=== PATIENT | male | born 1990 | race Caucasian/White ===

== ENCOUNTER 2017-05-20 05:39 | Day surgery (SDC) | payer BC ==
[~2017-05-20] VITALS: Ht 180.3 cm; Wt 88.1 kg
[2017-05-20] MEDS ORDERED: LACTATED RINGERS 1,000 ML IV SCH (06:04)
[2017-05-20] MEDS ORDERED: NONE PER PT (06:05)
[2017-05-20 06:09] VITALS: BP 124/74
[2017-05-20] MEDS ORDERED: MIDAZOLAM 1 MG/ML, 2ML ONE (06:14)
[2017-05-20] MEDS ORDERED: FENTANYL PF 250 MCG/5ML ONE (06:14)
[2017-05-20] MEDS ORDERED: GABAPENTIN 300 MG CAPSULE PO ONE (06:30)
[2017-05-20] MEDS ORDERED: LIDOCAINE 1%, 2ML SQ PRN (06:30)
[2017-05-20] MEDS ORDERED: SUCCINYLCHOLINE 20 MG/ML, 10ML ONE (06:59)
[2017-05-20] MEDS ORDERED: ROCURONIUM 10 MG/ML,10ML ONE (06:59)
[2017-05-20] MEDS ORDERED: DEXAMETHASONE 4 MG/ML, 1ML ONE (06:59)
[2017-05-20] MEDS ORDERED: ONDANSETRON 2MG/ML, 2ML ONE (06:59)
[2017-05-20] MEDS ORDERED: PROPOFOL 10 MG/ML, 20ML ONE (06:59)
[2017-05-20] MEDS ORDERED: CEFAZOLIN 1,000 MG ONE (06:59)
[2017-05-20] MEDS ORDERED: ROPIvacaine/PF 0.5%, 30 ML INFIL ONE (07:20)
[2017-05-20] MEDS ORDERED: LIDOCAINE 1%-EPI 1:100K, 30ML INFIL ONE (07:20)
[2017-05-20] MEDS ORDERED: GABA300C10 PO (08:00)
[2017-05-20] MEDS ORDERED: MEPERIDINE/PF 50 MG/ML ONE (08:17)
[2017-05-20] MEDS ORDERED: FENTANYL PF 100 MCG/2ML ONE (08:17)
[2017-05-20] MEDS: FENTANYL PF 100 MCG/2ML IV PRN ×2 (08:23→08:29)
[2017-05-20] MEDS ORDERED: HYDROmorphone 2 MG/ML, 1ML ONE (08:25)
[2017-05-20] MEDS ORDERED: OXYcodone 5 MG/5 ML ORAL.SOL UDC ONE (08:25)
[2017-05-20] MEDS ORDERED: ACETAMINOPHEN 650 MG/20.3 ML UDC ONE (08:25)
[2017-05-20] MEDS ORDERED: hydrALAzine 20 MG/ML, 1ML IV PRN (08:30)
[2017-05-20] MEDS ORDERED: OXYcodone 5 MG/5 ML ORAL.SOL UDC PO PRN (08:30)
[2017-05-20] MEDS ORDERED: METOCLOPRAMIDE 5 MG/ML, 2ML IV PRN (08:30)
[2017-05-20] MEDS ORDERED: ACETAMINOPHEN 325 MG TABLET PO PRN (08:30)
[2017-05-20] MEDS ORDERED: LABETALOL 5MG/ML, 20ML IV PRN (08:30)
[2017-05-20] MEDS ORDERED: ONDANSETRON 2MG/ML, 2ML IVPush PRN (08:30)
[2017-05-20] MEDS: HYDROmorphone 1 MG/ML, 1ML IV PRN ×3 (08:38→08:51)
== END 2017-05-20 10:30 | disposition home or self-care (01) ==
LOC: OUT 05:39
PROVIDERS: ATTEND Orthopaedic Surgery
DX: S83.241A Other tear of medial meniscus, current injury, right knee, initial encounter (principal); S83.511A Sprain of anterior cruciate ligament of right knee, initial encounter; X58.XXXA Exposure to other specified factors, initial encounter; Y93.89 Activity, other specified; Y92.89 Other specified places as the place of occurrence of the external cause; Y99.8 Other external cause status
CPT/HCPCS: 29888; C1713; C1762; J0330; J0690; J1100; J1170; J2250; J2405; J2704; J2795; J3010; J3490; J7120

== ENCOUNTER 2017-09-02 05:37 | Day surgery (SDC) | payer BC ==
[~2017-09-02] VITALS: Ht 180.3 cm; Wt 89.0 kg
[~2017-09-02 05:37] MED LIST: GABA300C10 PO; NONE PER PT
[2017-09-02] MEDS ORDERED: LACTATED RINGERS 1,000 ML IV SCH (06:01)
[2017-09-02] MEDS ORDERED: LIDOCAINE/PF 1%, 30ML ONE (06:07)
[2017-09-02] MEDS ORDERED: EPINEPHRINE 1 MG/ML, 1ML ONE (06:07)
[2017-09-02] MEDS ORDERED: BUPIVACAINE/PF 0.5% ONE ×2 (06:07→07:28)
[2017-09-02 06:25] VITALS: BP 126/86
[2017-09-02] MEDS ORDERED: MIDAZOLAM 1 MG/ML, 2ML ONE (06:28)
[2017-09-02] MEDS ORDERED: FENTANYL PF 100 MCG/2ML ONE ×2 (06:28→08:40)
[2017-09-02] MEDS ORDERED: ONDANSETRON ODT 8 MG PO ONE (06:30)
[2017-09-02] MEDS ORDERED: GABAPENTIN 300 MG CAPSULE PO ONE (06:30)
[2017-09-02] MEDS ORDERED: OxyconTIN ER 20 MG TAB.ER PO ONE (06:30)
[2017-09-02] MEDS ORDERED: ACETAMINOPHEN 500 MG TABLET PO ONE (06:30)
[2017-09-02] MEDS ORDERED: LORazepam 2 MG/ML, 1ML IVPush PRN (07:00)
[2017-09-02] MEDS ORDERED: PROMETHAZINE 25 MG/ML, 1ML IM PRN (07:00)
[2017-09-02] MEDS ORDERED: hydrALAzine 20 MG/ML, 1ML IV PRN (07:00)
[2017-09-02] MEDS ORDERED: MORPHINE SULFATE 4 MG/ML, 1ML IVPush PRN (07:00)
[2017-09-02] MEDS ORDERED: ALBUTEROL SULFATE 2.5 MG/3 ML NPPB PRN (07:00)
[2017-09-02] MEDS ORDERED: ALBUTEROL/IPRATROPIUM 2.5MG/0.5MG, 3 ML NPPB PRN (07:00)
[2017-09-02] MEDS ORDERED: ONDANSETRON 2MG/ML, 2ML IVPush PRN (07:00)
[2017-09-02] MEDS ORDERED: PROMETHAZINE 12.5 MG SUPP PR PRN (07:00)
[2017-09-02] MEDS ORDERED: MEPERIDINE/PF 25MG/0.5ML IVPush PRN (07:00)
[2017-09-02] MEDS ORDERED: DIAZEPAM 5 MG/ML, 2ML IVPush PRN (07:00)
[2017-09-02] MEDS ORDERED: PROMETHAZINE 25 MG/ML, 1ML IV PRN (07:00)
[2017-09-02] MEDS ORDERED: OXYcodone 5 MG/5 ML ORAL.SOL UDC PO PRN (07:00)
[2017-09-02] MEDS ORDERED: LABETALOL 5MG/ML, 20ML IV PRN (07:00)
[2017-09-02] MEDS ORDERED: MIDAZOLAM 1 MG/ML, 2ML IV PRN (07:00)
[2017-09-02] MEDS ORDERED: LIDOCAINE 2%, 10ML ONE (07:28)
[2017-09-02] MEDS ORDERED: CEFAZOLIN 1,000 MG ONE (07:28)
[2017-09-02] MEDS ORDERED: ONDANSETRON 2MG/ML, 2ML ONE (07:28)
[2017-09-02] MEDS ORDERED: KETOROLAC 30 MG/1 ML ONE ×2 (07:28)
[2017-09-02] MEDS ORDERED: DEXAMETHASONE 4 MG/ML, 1ML ONE (07:28)
[2017-09-02] MEDS ORDERED: PROPOFOL 10 MG/ML, 20ML ONE (07:28)
[2017-09-02] MEDS: FENTANYL PF 100 MCG/2ML IV PRN ×3 (08:40→08:50)
== END 2017-09-02 10:15 ==
LOC: OUT 05:37
PROVIDERS: ATTEND Orthopaedic Surgery
DX: S83.512A Sprain of anterior cruciate ligament of left knee, initial encounter (principal); S83.242A Other tear of medial meniscus, current injury, left knee, initial encounter; X58.XXXA Exposure to other specified factors, initial encounter; Y93.89 Activity, other specified; Y92.89 Other specified places as the place of occurrence of the external cause; Y99.8 Other external cause status
CPT/HCPCS: 29881; 29888; C1713; J0171; J0690; J1100; J1885; J2250; J2405; J2704; J3010; J3490; J7120; Q0162